=== PATIENT | female | born 1955 | race Caucasian/White ===

== ENCOUNTER 2016-09-17 10:24 | Emergency (ER) | payer OTHER ==
--- NOTE | ~2016-09-17 | CR230 ---
[facility]. [facility] A Service of [facility] RADIOLOGY TEXT RESULTS PATIENT: YOGI MCDONNELL LOCATION: SED : 53 UNIT #: [id number] AGE: [address]: DERECK LEAL SEX: F ORDER DR: [id number] [address] [address] [id number] E MR#: [id number] Acc #: [id number] NAME: YOGI MCDONNELL : 1955 SEX: F STUDY DATE/TIME: 09/17/2016 10:59 UNIT: SED ROOM: STUDY DESCRIPTION: CR Shoulder Min 2 View Rt Attending Physician: Dereck Leal Ordering Physician: Dereck Leal Primary Care Physician: Benja Stanford M.D. MEDICAL IMAGING REPORT This report is preliminary unless electronic signature is present. EXAM Right shoulder, 3 views, 09/17/2016, 1059 hours. CLINICAL HISTORY Patient fell on shoulder at work 09/12/2016, shoulder pain. Workman's compensation. COMPARISON Left shoulder 09/08/2008. No prior right shoulder images. FINDINGS AP views in internal AND external rotation and a scapula Y-view demonstrate 2 orthopedic anchors in the greater tuberosity of the humerus, likely from prior rotator cuff repair. The glenohumeral joint demonstrates trace spurring. The acromioclavicular joint is normal. There is no fracture. IMPRESSION Trace spurring at the glenohumeral joint with evidence of previous rotator cuff repair with 2 orthopedic anchors at the greater tuberosity. There is no acute fracture or dislocation. Dictated by... Conchita Ceja M.D. THIS IS AN ELECTRONICALLY VERIFIED REPORT Conchita Ceja M.D. at 09/18/2016 9:33 AM YANETH/gavin TD: 09/17/2016 16:54 [facility]. [facility] A Service of [facility] RADIOLOGY TEXT RESULTS PATIENT: YOGI MCDONNELL LOCATION: SED : 53 UNIT #: [id number] AGE: [address]: DERECK LEAL SEX: F ORDER DR: JOB #: [id number] MEDICAL IMAGING REPORT Page 1 of 1
[2016-09-17] MEDS ORDERED: VOLTAREN75 MG (10:34)
[2016-09-17] MEDS ORDERED: ATIVAN (10:35)
== END 2016-09-17 12:39 | disposition home or self-care (01) ==
LOC: SED 10:24
DX: S43.401A Unspecified sprain of right shoulder joint, initial encounter (principal); S46.811A Strain of other muscles, fascia and tendons at shoulder and upper arm level, right arm, initial encounter; Z88.1 Allergy status to other antibiotic agents; Z88.8 Allergy status to other drugs, medicaments and biological substances; W01.0XXA Fall on same level from slipping, tripping and stumbling without subsequent striking against object, initial encounter; Y92.69 Other specified industrial and construction area as the place of occurrence of the external cause; Y99.0 Civilian activity done for income or pay
CPT/HCPCS: 73030; 99283; J1885